=== PATIENT | female | born 2000 | race American Indian/Alaskan Native ===

== ENCOUNTER 2018-09-23 15:39 | Emergency (ER) | payer SELFPAY ==
[2018-09-23 15:46] VITALS: BP 110/67
--- NOTE | 2018-09-23 15:49 | Event Note ---
ED Screening Note Date of service: 09/23/18 Time: 15:48 ED Screening Note: 16 y/o female comes in for chest pain, pelvic cramping and dysuria This initial assessment/diagnostic orders/clinical plan/treatment(s) is/are subject to change based on patients health status, clinical progression and re- assessment by fellow clinical providers in the ED. Further treatment and workup at subsequent clinical providers discretion. Patient/guardian urged not to elope from the ED as their condition may be serious if not clinically assessed and managed. Initial orders include:
[2018-09-23 16:36] LABS: Bacteria,Urine 1+ /HPF (Negative); Bilirubin,Urine NEG (Negative); Blood,Urine LG (Negative); Color,Urine Yellow (Yellow); Mucus,Urine FEW /HPF
[2018-09-23 16:37] LABS: RBC,Urine > 182.0 /HPF (0.0-6.0); WBC,Urine > 182.0 /HPF (0.0-6.0)
--- NOTE | 2018-09-23 16:39 | Emergency Department Report ---
ED General Adult HPI - General Chief complaint: Abdominal Pain Stated complaint: CHEST PAIN Time Seen by Provider: 09/23/18 15:47 Source: patient Mode of arrival: Ambulatory Limitations: No Limitations - History of Present Illness Initial comments: 17-year-old healthy female presenting with complaints of dysuria and left flank pain that has been ongoing for a number of days. She states that the pain is intermittent and has not resolved and denies any nausea, vomiting, fevers. She further reports that she has had some intermittent sharp stabbing chest pains that have been going on for several months however she only notices it when she is feeling stressed out and does not have any pain currently. No shortness of breath or other associated symptoms. -: Gradual, week(s) Location: chest, back, abdomen Radiation: non-radiation Quality: aching Consistency: intermittent Improves with: none Worsens with: none Associated Symptoms: denies other symptoms Treatments Prior to Arrival: none - Related Data Previous Rx's Medication Instructions Recorded Last Taken Type Ibuprofen [Motrin] 600 mg PO Q8H PRN #15 tablet 09/23/18 Unknown Rx cefUROXime [Ceftin] 500 mg PO Q12H #20 tablet 09/23/18 Unknown Rx Allergies Allergy/AdvReac Type Severity Reaction Status Date / Time No Known Allergies Allergy Unverified 09/23/18 15:43 ED Review of Systems ROS: Stated complaint: CHEST PAIN Other details as noted in HPI Comment: All other systems reviewed and negative Cardiovascular: as per HPI Gastrointestinal: as per HPI Genitourinary: as per HPI ED Past Medical Hx - Past Medical History Previous Medical History?: Yes Hx Asthma: Yes - Surgical History Past Surgical History?: No - Social History Smoking Status: Never Smoker Substance Use Type: Marijuana - Medications Home Medications: Home Medications Medication Instructions Recorded Confirmed Last Taken Type Ibuprofen [Motrin] 600 mg PO Q8H PRN #15 tablet 09/23/18 Unknown Rx cefUROXime [Ceftin] 500 mg PO Q12H #20 tablet 09/23/18 Unknown Rx ED Physical Exam - General Limitations: No Limitations General appearance: alert, in no apparent distress - Head Head exam: Present: atraumatic, normocephalic - Eye Eye exam: Present: normal appearance - ENT ENT exam: Present: mucous membranes moist - Neck Neck exam: Present: normal inspection - Respiratory Respiratory exam: Present: normal lung sounds bilaterally. Absent: respiratory distress - Cardiovascular Cardiovascular Exam: Present: regular rate, normal rhythm. Absent: systolic murmur, diastolic murmur, rubs, gallop - GI/Abdominal GI/Abdominal exam: Present: soft, normal bowel sounds. Absent: distended, tenderness, guarding, rebound - Extremities Exam Extremities exam: Present: normal inspection - Back Exam Back exam: Present: normal inspection. Absent: CVA tenderness (R), CVA tenderness (L) - Neurological Exam Neurological exam: Present: alert, oriented X3 - Psychiatric Psychiatric exam: Present: normal affect, normal mood - Skin Skin exam: Present: warm, dry, intact, normal color. Absent: rash ED Course Vital Signs 09/23/18 15:43 Temperature 96.7 F L Pulse Rate 75 Respiratory 16 Rate Blood Pressure 110/67 O2 Sat by Pulse 100 Oximetry ED Medical Decision Making - Lab Data Lab Results 09/23/18 Range/Units 16:12 Urine Color Yellow (Yellow) Urine Turbidity Cloudy (Clear) Urine pH 7.0 (5.0-7.0) Ur Specific [place] 1.023 (1.003-1.030) Urine Protein 100 mg/dl (Negative) mg/dL Urine Glucose (UA) Neg (Negative) mg/dL Urine Ketones Neg (Negative) mg/dL Urine Blood Lg (Negative) Urine Nitrite Neg (Negative) Urine Bilirubin Neg (Negative) Urine Urobilinogen 2.0 (<2.0) mg/dL Ur Leukocyte Esterase Mod (Negative) Urine WBC (Auto) > 182.0 H (0.0-6.0) /HPF Urine RBC (Auto) > 182.0 (0.0-6.0) /HPF U Epithel Cells (Auto) 1.0 (0-13.0) /HPF Urine Bacteria (Auto) 1+ (Negative) /HPF Urine WBC Clumps 2+ /HPF Ur Transition Epith Cell 4 /HPF Urine Mucus Few /HPF Urine HCG, Qual Negative (Negative) - Medical Decision Making Healthy 17-year-old female presenting with intermittent chest pain that only occurs when she is stressed and has been ongoing for several months. No pain today. Exam related to this as normal. She has no cardiac risk factors, Wells PE 0, and is PERC negative. She also endorses some flank pain and urinary tract infection symptoms. Urinalysis does confirm this. is negative. Culture will be obtained and she'll be treated with IM Rocephin times one and antibiotics at home. Advised on follow-up with PCP as well as return precautions. - Differential Diagnosis UTI, anxiety, stone less likely Critical care attestation.: If time is entered above; I have spent that time in minutes in the direct care of this critically ill patient, excluding procedure time. ED Disposition Clinical Impression: UTI (urinary tract infection) Qualifiers: Urinary tract infection type: acute pyelonephritis Qualified Code(s): N10 - Acute pyelonephritis Disposition: TO HOME OR SELFCARE Is pt being admited?: No Condition: Good Instructions: Abdominal Pain (ED), Urinary Tract Infection in Women (ED) Prescriptions: cefUROXime [Ceftin] 500 mg PO Q12H #20 tablet Ibuprofen [Motrin] 600 mg PO Q8H PRN #15 tablet PRN Reason: Pain Referrals: PELON TABOR MD [Staff Physician] - 3-5 Days Time of Disposition: 16:49
[2018-09-23 16:44] LABS: HCG Qualitative,Urine Negative (Negative)
[2018-09-23] MEDS ORDERED: XYLOCAINE 1% MPF 5 mL INFILTRATI ONE (16:45)
[2018-09-23] MEDS ORDERED: ROCEPHIN IM ONE (16:45)
[2018-09-23] MEDS ORDERED: ZOFRAN ODT PO ONE (17:45)
[2018-09-23] MEDS ORDERED: ZOFRAN ODT ONE (17:46)
== END 2018-09-23 17:45 | disposition home or self-care (01) ==
LOC: ED 15:39
DX: N39.0 Urinary tract infection, site not specified (principal); J45.909 Unspecified asthma, uncomplicated; F12.90 Cannabis use, unspecified, uncomplicated; Z79.899 Other long term (current) drug therapy
CPT/HCPCS: 81001; 81025; 87086; 96372; 99283; J0696; Q0162

== ENCOUNTER 2021-11-07 14:31 | Emergency (ER) | payer SELFPAY ==
--- NOTE | 2021-11-07 16:34 | Ultrasound Report ---
ULTRASOUND PELVIS INDICATION / CLINICAL INFORMATION: pelvic pain. TECHNIQUE: Transabdominal. Transvaginal Duplex Color Doppler used: Yes. COMPARISON: None available FINDINGS: UTERUS: - Appearance: Single intrauterine with crown-rump length of 4.11 cm, consistent with an est imated gestational age of 11 weeks 0 days. heart rate of 168 bpm. - Size (cm): 8.7 x 6.2 x 6.7 - Mass or cyst: None. - Additional findings: There is a near circumferential thin echogenic focus along the periphery of th e gestational sac, possibly representing an amniotic band. RIGHT ADNEXA: Asymmetric enlargement of the right ovary which measures 2.8 x 1.1 x 1.9 cm. There is i ntraovarian flow on Doppler imaging, however intermittent torsion detorsion cannot be excluded. LEFT ADNEXA: No significant ovarian cyst or mass. Normal color Doppler blood flow. URINARY BLADDER: No significant abnormality. FREE FLUID: None. ADDITIONAL FINDINGS: None. IMPRESSION: 1. Single intrauterine with estimated gestational age of 11 weeks 0 days with heart r ate of 162 bpm. 2. Mild asymmetric enlargement of the right ovary as compared to the left with preserved intraovarian flow on Doppler imaging. Intermittent right ovarian torsion cannot be excluded. RECRUITMENT INTERNSHIP consultation is recommended. 3. Thin echogenic band about the gestational sac may represent an amniotic band. 3. Small perigestational hemorrhage. Signer Name: Yayo Haro MD Signed: 11/07/2021 4:30 PM Workstation Name: [facility]
--- NOTE | 2021-11-07 16:34 | Ultrasound Report ---
ULTRASOUND PELVIS INDICATION / CLINICAL INFORMATION: pelvic pain. TECHNIQUE: Transabdominal. Transvaginal Duplex Color Doppler used: Yes. COMPARISON: None available FINDINGS: UTERUS: - Appearance: Single intrauterine with crown-rump length of 4.11 cm, consistent with an est imated gestational age of 11 weeks 0 days. heart rate of 168 bpm. - Size (cm): 8.7 x 6.2 x 6.7 - Mass or cyst: None. - Additional findings: There is a near circumferential thin echogenic focus along the periphery of th e gestational sac, possibly representing an amniotic band. RIGHT ADNEXA: Asymmetric enlargement of the right ovary which measures 2.8 x 1.1 x 1.9 cm. There is i ntraovarian flow on Doppler imaging, however intermittent torsion detorsion cannot be excluded. LEFT ADNEXA: No significant ovarian cyst or mass. Normal color Doppler blood flow. URINARY BLADDER: No significant abnormality. FREE FLUID: None. ADDITIONAL FINDINGS: None. IMPRESSION: 1. Single intrauterine with estimated gestational age of 11 weeks 0 days with heart r ate of 162 bpm. 2. Mild asymmetric enlargement of the right ovary as compared to the left with preserved intraovarian flow on Doppler imaging. Intermittent right ovarian torsion cannot be excluded. REFUSE COLLECTOR SUPERVISOR consultation is recommended. 3. Thin echogenic band about the gestational sac may represent an amniotic band. 3. Small perigestational hemorrhage. Signer Name: Yayo Haro MD Signed: 11/07/2021 4:30 PM Workstation Name: [id number]
[2021-11-07 16:44] LABS: Hemoglobin 13.6 gm/dl (10.1-14.3); Red Blood Count 4.19 M/mm3 (3.65-5.03)
[2021-11-07 16:45] LABS: Basophils % (Auto) 0.2 % (0.0-1.8); Eosinophils % (Auto) 0.2 % (0.0-4.3); Lymphocytes # (Auto) 1.7 K/mm3 (1.2-5.4); Lymphocytes % (Auto) 25.8 % (13.4-35.0); Mean Corpuscular HGB Conc 35 % (30-34); Mean Corpuscular Volume 93 fl (79-97); Monocytes # (Auto) 0.4 K/mm3 (0.0-0.8); Monocytes % (Auto) 6.8 % (0.0-7.3); Platelet Count 213 K/mm3 (140-440); Red Cell Distribution Width 13.5 % (13.2-15.2)
[2021-11-07 17:11] LABS: Alanine Aminotransferase 24 units/L (7-56); Albumin 4.9 g/dL (3.9-5); BUN/Creatinine Ratio 13; Blood Urea Nitrogen 8 mg/dL (7-17); Calcium 10.2 mg/dL (8.4-10.2); Hemolysis Index 7
[2021-11-07 18:27] LABS: Mucus,Urine FEW /HPF
[2021-11-07 18:32] LABS: Color,Urine Yellow (Yellow)
--- NOTE | 2021-11-07 19:17 | Emergency Department Report ---
ED HPI - General Chief complaint: Back Pain/Injury Stated complaint: 14 WKS PREG/VAGINAL PAIN AND LOWER BACK Source: patient Mode of arrival: Ambulatory Limitations: No Limitations - History of Present Illness Initial comments: 14-week female complaining of abdominal pain radiating to her back. Patient states pain started this a.m. feeling like a fiery pain. Patient states pain is a current 8 out of 10. Patient denies any vaginal bleeding or vaginal discharge. Patient states that she is current followed by [facility]/tender coordinator. Patient denies any fever or chills. Patient is alert and oriented x3. No acute distress noted. No ill appearance noted. Patient is 2Para 0 A1. MD Complaint: abdominal pain -: This morning Location: pelvis Severity: moderate Severity scale (0 -10): 8 Quality: aching Consistency: intermittent Improves with: none Associated symptoms: denies other symptoms - Related Data Previous Rx's Medication Instructions Recorded Last Taken Type Ibuprofen [Motrin] 600 mg PO Q8H PRN #15 tablet 09/23/18 Unknown Rx cefUROXime [Ceftin] 500 mg PO Q12H #20 tablet 09/23/18 Unknown Rx Acetaminophen/Codeine [Tylenol 1 tab PO Q6H PRN 3 Days #12 tab 11/07/21 Unknown Rx /Codeine # 3 tab] Allergies Allergy/AdvReac Type Severity Reaction Status Date / Time No Known Allergies Allergy Verified 11/07/21 18:58 ED Review of Systems ROS: Stated complaint: 14 WKS PREG/VAGINAL PAIN AND LOWER BACK Other details as noted in HPI Constitutional: denies: chills, fever Eyes: denies: eye pain, eye discharge, vision change ENT: denies: ear pain, throat pain Respiratory: denies: cough, shortness of breath, wheezing Cardiovascular: denies: chest pain, palpitations Endocrine: no symptoms reported Gastrointestinal: denies: abdominal pain, nausea, diarrhea Genitourinary: denies: urgency, dysuria, discharge Musculoskeletal: denies: back pain, joint swelling, arthralgia Skin: denies: rash, lesions Neurological: denies: headache, weakness, paresthesias Psychiatric: denies: anxiety, depression Hematological/Lymphatic: denies: easy bleeding, easy bruising ED Past Medical Hx - Past Medical History Hx Asthma: Yes - Social History Smoking Status: Never Smoker Substance Use Type: Marijuana - Medications Home Medications: Home Medications Medication Instructions Recorded Confirmed Last Taken Type Ibuprofen [Motrin] 600 mg PO Q8H PRN #15 tablet 09/23/18 Unknown Rx cefUROXime [Ceftin] 500 mg PO Q12H #20 tablet 09/23/18 Unknown Rx Acetaminophen/Codeine [Tylenol 1 tab PO Q6H PRN 3 Days #12 tab 11/07/21 Unknown Rx /Codeine # 3 tab] ED Physical Exam - General Limitations: No Limitations General appearance: alert, in no apparent distress - Head Head exam: Present: atraumatic, normocephalic - Eye Eye exam: Present: normal appearance - ENT ENT exam: Present: mucous membranes moist - Neck Neck exam: Present: normal inspection - Respiratory Respiratory exam: Present: normal lung sounds bilaterally. Absent: respiratory distress - Cardiovascular Cardiovascular Exam: Present: regular rate, normal rhythm. Absent: systolic murmur, diastolic murmur, rubs, gallop - GI/Abdominal GI/Abdominal exam: Present: soft, normal bowel sounds - Extremities Exam Extremities exam: Present: normal inspection - Back Exam Back exam: Present: normal inspection - Neurological Exam Neurological exam: Present: alert, oriented X3 - Psychiatric Psychiatric exam: Present: normal affect, normal mood - Skin Skin exam: Present: warm, dry, intact, normal color. Absent: rash ED Course Vital Signs 11/07/21 15:07 Temperature 98.5 F Pulse Rate 97 H Respiratory 18 Rate Blood Pressure 116/71 [Left] O2 Sat by Pulse 100 Oximetry ED Medical Decision Making - Lab Data Result diagrams: 11/07/21 16:25 11/07/21 16:25 - Radiology Data [facility] [address] [place] [address] Ultrasound Report Signed Patient: RAYMOND PARK MR#: [id number] : 2000 Acct:[id number] Age/Sex: 20 / F ADM Date: 11/07/21 Loc: ED Attending Dr: Ordering Physician: JOSEFINA CONNOR NP Date of Service: 11/07/21 Procedure(s): US OB transvaginal Accession Number(s): [id number] cc: JOSEFINA CONNOR NP ULTRASOUND PELVIS INDICATION / CLINICAL INFORMATION: pelvic pain. TECHNIQUE: Transabdominal. Transvaginal Duplex Color Doppler used: Yes. COMPARISON: None available FINDINGS: UTERUS: - Appearance: Single intrauterine with crown-rump length of 4.11 cm, consistent with an estimated gestational age of 11 weeks 0 days. heart rate of 168 bpm. - Size (cm): 8.7 x 6.2 x 6.7 - Mass or cyst: None. - Additional findings: There is a near circumferential thin echogenic focus along the periphery of the gestational sac, possibly representing an amniotic band. RIGHT ADNEXA: Asymmetric enlargement of the right ovary which measures 2.8 x 1.1 x 1.9 cm. There is intraovarian flow on Doppler imaging, however intermittent torsion detorsion cannot be excluded. LEFT ADNEXA: No significant ovarian cyst or mass. Normal color Doppler blood flow. URINARY BLADDER: No significant abnormality. FREE FLUID: None. ADDITIONAL FINDINGS: None. IMPRESSION: 1. Single intrauterine with estimated gestational age of 11 weeks 0 days with heart rate of 162 bpm. 2. Mild asymmetric enlargement of the right ovary as compared to the left with preserved intraovarian flow on Doppler imaging. Intermittent right ovarian torsion cannot be excluded. BRIMMING MACHINE OPERATOR consultation is recommended. 3. Thin echogenic band about the gestational sac may represent an amniotic band. 3. Small perigestational hemorrhage. Signer Name: Yayo Haro MD Signed: 11/07/2021 4:30 PM Workstation Name: [id number] Transcribed By: Dictated By: YAYO HARO MD Electronically Authenticated By: YAYO HARO MD Signed Date/Time: 11/07/21 1630 DD/ 1611 TD/TT: - Medical Decision Making 14-week female complaining of abdominal pain radiating to her back. Patient states pain started this a.m. feeling like a fiery pain. Patient states pain is a current 8 out of 10. Patient denies any vaginal bleeding or vaginal discharge. [facility] Patient denies any fever or chills. Patient is alert and oriented x3. No acute distress noted. No ill appearance noted. Patient is 2Para 0 A1. Consulted with at [facility] BRIMMING MACHINE OPERATOR. For abnormal ultrasound report. IMPRESSION: 1. Single intrauterine with estimated gestational age of 11 weeks 0 days with heart rate of 162 bpm. 2. Mild asymmetric enlargement of the right ovary as compared to the left with preserved intraovarian flow on Doppler imaging. Intermittent right ovarian torsion cannot be excluded. BRIMMING MACHINE OPERATOR consultation is recommended. 3. Thin echogenic band about the gestational sac may represent an amniotic ban d. 3. Small perigestational hemorrhage. instruction given to give the patient 1 L normal saline , IV morphine 4 mg and patient to follow-up in the clinic next week. Patient is to have Tylenol 3 for pain control at home. Patient is not have any 6 bed rest and to follow-up with [facility] this week . Rechecked the patient is resting quietly , comfortable and feeling better. I discussed the results of diagnostic study, my clinical impression and the plan for further treatment with the patient. Patient agrees with plan and discharge at this present time. All question addressed. I have given the patient instruction regarding a diagnosis ,expectation ,follow- up and return precaution. I explained to the patient that emergent condition may arise and to return to the ED for new worsen and any new persisting condition. I have explained the importance of following up with the primary care physician or referral physician listed below has instructed. The patient verbalized under standing of discharge instruction. Abnormal Lab Results 11/07/21 11/07/21 11/07/21 16:25 16:25 16:25 WBC 6.4 RBC 4.19 Hgb 13.6 Hct 39.0 MCV 93 MCH 32 MCHC 35 H RDW 13.5 Plt Count 213 Lymph % (Auto) 25.8 [place] % (Auto) 6.8 Eos % (Auto) 0.2 Baso % (Auto) 0.2 Lymph # (Auto) 1.7 [place] # (Auto) 0.4 Eos # (Auto) 0.0 Baso # (Auto) 0.0 Seg Neutrophils % 67.0 Seg Neutrophils # 4.3 Sodium 135 L Potassium 5.0 Chloride 99.3 Carbon Dioxide 26 Anion Gap 15 BUN 8 Creatinine 0.6 Estimated GFR > 60 BUN/Creatinine Ratio 13 Glucose 83 Calcium 10.2 Total Bilirubin 0.30 AST 18 ALT 24 Alkaline Phosphatase 55 Total Protein 7.6 Albumin 4.9 Albumin/Globulin Ratio 1.8 HCG, Quant [id number] H Urine Color Urine Turbidity Specific [place] (Man) Ur Protein (Man) Ur Ketones (Man) Ur Nitrite (Man) Ur Reducing Substances Urine Bilirubin (Man) Urine Ictotest Leukocyte Esterase (Man) Urine WBC (Auto) Urine RBC (Auto) U Epithel Cells (Auto) Urine RBC (Manual) Urine Mucus 11/07/21 Unknown WBC RBC Hgb Hct MCV MCH MCHC RDW Plt Count Lymph % (Auto) [place] % (Auto) Eos % (Auto) Baso % (Auto) Lymph # (Auto) [place] # (Auto) Eos # (Auto) Baso # (Auto) Seg Neutrophils % Seg Neutrophils # Sodium Potassium Chloride Carbon Dioxide Anion Gap BUN Creatinine Estimated GFR BUN/Creatinine Ratio Glucose Calcium Total Bilirubin AST ALT Alkaline Phosphatase Total Protein Albumin Albumin/Globulin Ratio HCG, Quant Urine Color Yellow Urine Turbidity Clear Specific [place] (Man) 1.010 Ur Protein (Man) 1+ Ur Ketones (Man) Negative Ur Nitrite (Man) Negative Ur Reducing Substances Not Reportable Urine Bilirubin (Man) Negative Urine Ictotest Not Reportable Leukocyte Esterase (Man) Negative Urine WBC (Auto) 1.0 Urine RBC (Auto) 1.0 U Epithel Cells (Auto) 2.0 Urine RBC (Manual) Negative Urine Mucus Few Critical care attestation.: If time is entered above; I have spent that time in minutes in the direct care of this critically ill patient, excluding procedure time. ED Disposition Clinical Impression: Threatened miscarriage Disposition: 01 HOME / SELF CARE / HOMELESS Is pt being admited?: No Does the pt Need Aspirin: No Condition: Stable Instructions: Vaginal Bleeding During , First Trimester, Threatened Miscarriage, [id number] Additional Instructions: Do not have any sex and bed rest until you follow-up with [facility] BRIMMING MACHINE OPERATOR hCG quant [id number] Prescriptions: Acetaminophen/Codeine [Tylenol /Codeine # 3 tab] 1 tab PO Q6H PRN 3 Days #12 tab PRN Reason: Pain, Mild (1-3) Referrals: [facility] [Provider Group] - 3-5 Days Forms: Work/School Release Form(ED) Time of Disposition: 19:38
[2021-11-07] MEDS ORDERED: MORPHINE 4 MG/1 ML INJ IV ONE (19:39)
[2021-11-07] MEDS ORDERED: SODIUM CHLORIDE 0.9% 1000 ML 1,000 ML IV ONE (19:39)
[2021-11-07] MEDS ORDERED: ONDANSETRON 4 MG/2 ML INJ IV ONE (19:39)
[2021-11-07 21:30] VITALS: BP 122/76
== END 2021-11-07 21:30 | disposition home or self-care (01) ==
LOC: ED 14:31
DX: O20.0 Threatened abortion (principal); Z3A.14 14 weeks gestation of pregnancy
CPT/HCPCS: 36415; 76801; 76817; 80053; 81001; 84702; 85025; 96361; 96374; 96375; 99284; J2270; J2405; J7030